=== PATIENT | female | born 1980 | race Caucasian/White ===

== ENCOUNTER 2017-09-30 07:33 | Observation (INO) ==
--- OUTSIDE RECORDS SUMMARY | 2017-09-30 08:03 | External Medical Summary | Clinical Summary ---
:1980 Author Organization [facility] Address [address] [place] [address] Phone Care Team Providers Name Role Phone Unavailable Primary Care Provider Unavailable Source Comments Some departments are not documenting in the electronic medical record. If you do not see the information that you expected, contact Release of Information in the Health Information Management department at [phone] for further assistance in locating additional records.[facility] Allergies Active Allergy Reactions Severity Noted Date Comments Cefazolin High 09/05/2003 Allergy recorded in SMS: ANCEF~Reactions: RASH Cefuroxime Axetil High 09/05/2003 Allergy recorded in SMS: CEFTIN~Reactions: RASH Cephalosporins High 09/05/2003 Allergy recorded in SMS: CEPHALOSPORINS~Reactions : RASH Hydrocodone High 09/05/2003 Allergy recorded in SMS: HYDROCODONE~Reactions: RASH Vancomycin High 09/05/2003 Allergy recorded in SMS: VANCO~Reactions: RASH Benzoin 09/05/2003 Allergy recorded in SMS: BENZOIN~Reactions: RASH Iodinated Contrast- Oral And Iv 09/05/2003 Allergy recorded in SMS: Dye Contrast Dye~Reactions: RASH Social History Tobacco Use Types Packs/Day Years Used Date Never Assessed Sex Assigned at Date Recorded Not on file Plan of Treatment Health Maintenance Due Date Last Done Comments PHYSICAL (COMPREHENSIVE) EXAM 1985 PERTUSSIS VACCINE 1989 TETANUS VACCINE 1995 CERVICAL CANCER SCREENING 2008 INFLUENZA VACCINE 04/27/2017
[2017-09-30 08:24] VITALS: BMI 56.8
[2017-09-30] MEDS ORDERED: NS 1,000 ML IV ONE (08:26)
[2017-09-30] MEDS ORDERED: FentaNYL 100 MCG/2 ML INJECTION IVP ONE (08:28)
[2017-09-30] MEDS: ONDANSETRON 4 MG/2 ML INJECTION IVP SCH ×3 (08:51→22:54)
[2017-09-30] MEDS: PROMETHAZINE 25 MG INJECTION IVP PRN ×2 (09:37→15:36)
--- NOTE | 2017-09-30 10:08 | XRay Report ---
Indication: acute Abd pain PROCEDURE: PA view of the chest with supine and upright AP views of the abdomen Encounter: Initial Comparison: August 29, 2014 FINDINGS: The lungs are hypoinflated but grossly clear. There is no abnormal airspace opacity, pleural effusion or pneumothorax identified. The heart size, pulmonary vasculature and mediastinum are within normal limits. There is no free air on the upright view. The bowel gas pattern is nonobstructive and nonspecific. Gas is seen in small and large bowel to the level of the rectum. Distended colon Moderate stool is seen throughout the colon. IMPRESSION: 1. No acute cardiopulmonary abnormality. 2. No evidence of acute obstruction or free air. Distention of the colon could represent ileus. .
[2017-09-30] MEDS: NS 1,000 ML IV SCH (10:14)
[2017-09-30] MEDS ORDERED: BISACODYL 10 MG SUPPOSITORY RECTALLY ONE (15:20)
[2017-09-30] MEDS ORDERED: SENNA + DOCUSATE TABLET PO ONE (16:35)
[2017-09-30] MEDS: NS with KCL 20 mEq 1,000 ML IV SCH (17:08)
--- NOTE | 2017-09-30 17:55 | Internal Med History&Physical ---
Internal Medicine HPI Chief complaint: Nausea, vomiting, abdominal pain History of present illness: Jen is a 37 yo obese white female with a history of Spina bifida and multiple complications. She presented with 3 day history of nausea, vomiting, abdominal pain. She was recently seen in the ER and released. She is now unable to keep any fluids down due to uncontrollable nausea/vomiting. She also c/o abdominal pain and distension. Review of Systems - Constitutional Constitutional: Present: fatigue, fever(s), lethargy, malaise, weakness - EENMT Balance: Absent: vertigo Mouth/Throat: Absent: sore throat, painful swallowing - Cardiovascular Cardiovascular: Absent: chest pain, palpitations - Gastrointestinal Gastrointestinal: Present: abdominal pain, constipation, nausea, vomiting - Genitourinary Genitourinary: Present: urinary frequency. Absent: flank pain, hematuria, pelvic pain - Neurological Neurological: Present: numbness, weakness - Psychiatric Psychiatric: Present: anxiety, depression - Allergic/Immunologic Allergic/Immunologic: Absent: tongue swelling, throat swelling, itchy eyes, urticaria PFSH Patient Stated Medical History Peripheral Neuropathy Yes Hypotension Yes: sometimes Asthma Yes Bronchitis Yes Pneumonia Yes: HX Gastroesophageal Reflux Yes Disease Hiatal Hernia Yes Other GI Yes: IBS Hx Urinary Tract Infection Yes Other Yes: SELF CATH Anemia Yes Osteoarthritis Yes Other Musculoskeletal No Cellulitis Yes MRSA Yes Sepsis Yes Shingles Yes Depression Yes Polycystic Ovarian Syndrome Yes Post Menopausal No Now No Surgical History: FLAGGER shunt. Cholecystectomy. Back. Shoulder - Social History Smoking status: Never smoker Substance use type: does not use Alcohol intake frequency: does not drink Housing: house Household members: spouse, children service: No Current occupational status: disabled Medications Home Medications Medication Instructions Recorded Confirmed Type Alendronate [Fosamax] 70 mg PO Mo #0 06/06/13 09/30/17 History Calcium Carb, Citrate/Vit D3 1 tab PO DAILY #0 01/29/16 09/29/17 History [Calcium + D3 ER Tablet] Ferrous Sulfate [Iron] 325 mg PO DAILY #0 01/29/16 09/30/17 History Lubiprostone [Amitiza] 24 mcg PO BID #0 01/29/16 09/30/17 History Metformin HCl 500 mg PO BID #0 01/29/16 09/30/17 History Oxybutynin Chloride [Oxybutynin 10 mg PO DAILY #0 01/29/16 09/30/17 History Chloride ER] Venlafaxine HCl [Effexor Xr] 150 mg PO DAILY #0 01/29/16 09/30/17 History Cholecalciferol [Vit. D-3] 1 tab PO DAILY 03/14/17 09/30/17 History Allergies Allergy/AdvReac Type Severity Reaction Status Date / Time vancomycin Allergy Mild HIVES Verified 09/30/17 08:33 cefazolin Allergy Unknown Verified 09/30/17 08:33 cefuroxime Allergy Unknown Verified 09/30/17 08:33 hydrocodone Allergy Unknown Verified 09/30/17 08:33 Iodinated Contrast- Oral and Allergy Unknown HIVES Verified 09/30/17 08:33 IV Dye adhesive tape AdvReac Unknown SKIN GETS Verified 09/30/17 08:33 RED benzoin compound Allergy Unknown BLISTERS Uncoded 09/30/17 08:33 AND HIVES Exam Vital signs: Temperature 99.7 F 09/30/17 15:30 Pulse Rate 118 H 09/30/17 15:30 Respiratory Rate 22 09/30/17 15:30 Blood Pressure 134/76 09/30/17 15:30 Pulse Oximetry 95 09/30/17 15:30 - Constitutional moderate distress, morbidly obese, agitated - Routine HEENT Exam Head: Present: normocephalic, atraumatic Eye: Present: EOMI, PERRL, conjunctivae pink. Absent: conjunctival icterus, scleral injection ENT: Present: mucous membranes dry, oropharynx clear, nares patent Nose: swollen mucosa, clear rhinorrhea Throat: normal inspection - Routine Neck Exam Present: supple. Absent: JVD, carotid bruit, lymphadenopathy, thyromegaly - Routine Chest/Breast/Axilla Exam Chest wall: Absent: tenderness Axillae: Absent: lymphadenopathy - Routine Respiratory Exam Present: CTA bilaterally. Absent: accessory muscle use, dyspnea - Routine Cardiovascular Exam Present: no murmur, tachycardia. Absent: S3, S4 - Routine Abdominal Exam Present: tenderness, distended, surgical scars. Absent: normoactive bowel sounds, rebound - Routine Extremities Exam Absent: cyanosis, clubbing, edema - Routine Skin Exam Present: intact. Absent: cyanosis, erythema, mottling, petechiae, jaundice - Routine Neurological Exam Present: alert, oriented X3, CN II-XII intact - Routine Psychiatric Exam Present: anxious, agitated. Absent: normal affect, cooperative, good judgment Internal Medicine Results - Labs CBC & Chem 7: 09/30/17 08:47 09/30/17 08:47 Labs: Short CBC 09/30/17 Range/Units 08:47 WBC 17.1 H (4.5-11.0) T/MM3 Hgb 14.0 (12-16) GM/DL Hct 43.7 (36-46) % Plt Count 213 (130-400) T/MM3 BMP 09/30/17 08:47 Sodium 141 Potassium 3.3 L Chloride 107 Carbon Dioxide 20 L BUN 9.0 Creatinine 0.5 L Glucose 157 H Calcium 8.0 L Liver Function 09/30/17 Range/Units 08:47 Total Bilirubin 0.80 (0.20-1.30) MG/DL AST 26 (14-36) U/L ALT 52 (9-52) U/L Alkaline Phosphatase 158 H (38-126) U/L Albumin 4.2 (3.5-5.0) G/DL - Imaging and Cardiology Chest x-ray Status: image reviewed by me Abdominal x-ray Status: image reviewed by me Additional comments: consistent with ileus Assessment and Plan - Assessment and Plan (1) Nausea and vomiting Current visit: Yes Status: Acute (2) Ileus Current visit: Yes Status: Acute Patient is refusing suppository. She is insisting that she get two Senokot. I have told her that she may require a NGT. She is tearful, agitated. Childish behavior. (3) Viral respiratory illness Current visit: Yes Status: Acute (4) Abdominal pain Current visit: Yes Status: Acute (5) Spina bifida Current visit: Yes Status: Acute (6) Leukocytosis Current visit: Yes Status: Acute Balbuena virus, UA pending
[2017-10-01] MEDS: NS with KCL 20 mEq 1,000 ML IV SCH ×2 (02:47→15:05)
[2017-10-01] MEDS: ONDANSETRON 4 MG/2 ML INJECTION IVP SCH ×4 (02:47→21:24)
--- NOTE | 2017-10-01 08:49 | XRay Report ---
Indication: ileus PROCEDURE: XR abdomen 2V: Encounter: Initial Comparison: September 30, 2017 Findings: The visualized lung bases are clear. There is no free air on the upright view. There is a dilated loop of small bowel seen in the left abdomen measuring up to 4.7 cm in diameter. Scattered nondifferential air-fluid levels are seen within small and large bowel. Colonic gas is again noted. Surgical clips in the left upper abdomen. Impression: The overall bowel gas pattern is suggestive of ileus. .
[2017-10-01] MEDS ORDERED: CALCIUM CHLORIDE 10% (1000mg/10ml) PFS INJECTION IVP ONE (12:25)
[2017-10-01] MEDS ORDERED: CALCIUM CHLORIDE IVP SCH (12:45)
[2017-10-01] MEDS ORDERED: NS IVP SCH (12:45)
[2017-10-01] MEDS: LEVOFLOXACIN PB 500 MG/100 ML BAG IV SCH (15:04)
[2017-10-01] MEDS ORDERED: SENNA + DOCUSATE TABLET PO ONE (15:37)
[2017-10-01] MEDS: 1/2 NS with KCL 20mEq 1,000 ML IV SCH (17:51)
--- NOTE | 2017-10-01 17:54 | Internal Med Progress Note ---
Internal Medicine Subjective Patient seen and examined. Family at the bedside. Questions answered. Abdominal x-ray still revealing ileus. Jen states that she does feel better today and has walks twice. She did have some flatness and passed a small amount of stool earlier today. Lab demonstrated low calcium level and this was replaced. Her sodium is slightly higher so I've changed her fluids to half-normal saline with 20 mEq KCl. She denies chest pains or shortness of breath. She does admit to fevers and chills. This patient has spina bifida and she does self catheter. I did check a catheter UA and it was consistent with infection so I started her on Levaquin daily Exam Vital Signs: Temperature 98.4 F 10/01/17 15:00 Pulse Rate 96 10/01/17 15:00 Respiratory Rate 18 10/01/17 15:00 Blood Pressure 129/73 10/01/17 15:00 Pulse Oximetry 97 10/01/17 15:00 Height/Weight/BMI: Height 4 ft 7 in Weight 112.6 kg Body Mass Index 56.8 - Constitutional Present: no acute distress, obese, diaphoretic - Routine HEENT Exam Head: Present: normocephalic, atraumatic Eye: Present: EOMI, conjunctivae pink. Absent: conjunctival icterus, scleral injection ENT: Present: mucous membranes moist - Routine Neck Exam Present: supple. Absent: JVD - Routine Chest/Breast/Axilla Exam Chest wall: Absent: tenderness Axillae: Absent: lymphadenopathy - Routine Respiratory Exam Present: CTA bilaterally. Absent: accessory muscle use, respiratory distress, rhonchi, wheezes, crackles - Routine Cardiovascular Exam Present: RRR. Absent: S3, S4 - Routine Abdominal Exam Present: tenderness, distended. Absent: normoactive bowel sounds (diminished but present) - Routine Extremities Exam Absent: cyanosis, clubbing, edema - Routine Skin Exam Present: intact. Absent: cyanosis, mottling, petechiae, urticaria, jaundice - Routine Neurological Exam Present: alert, oriented X3, CN II-XII intact - Routine Psychiatric Exam Present: normal affect, cooperative, good judgment. Absent: depressed, anxious Internal Medicine Results - Labs CBC & Chem 7: 10/01/17 04:21 10/01/17 04:21 Labs: Short CBC 10/01/17 Range/Units 04:21 WBC 7.6 D (4.5-11.0) T/MM3 Hgb 12.7 (12-16) GM/DL Hct 40.7 (36-46) % Plt Count 203 (130-400) T/MM3 BMP 10/01/17 04:21 Sodium 145 H Potassium 3.4 L Chloride 114 H D Carbon Dioxide 20 L BUN 7.0 Creatinine 0.5 L Glucose 81 Calcium 7.0 L D Liver Function 10/01/17 Range/Units 04:21 Total Bilirubin 0.60 (0.20-1.30) MG/DL AST 24 (14-36) U/L ALT 38 (9-52) U/L Alkaline Phosphatase 115 D (38-126) U/L Albumin 3.4 L (3.5-5.0) G/DL Urine 09/30/17 Range/Units 22:58 Urine Color Yellow (YELLOW) Urine Clarity Clear Urine pH 6.0 (5.0-8.0) Ur Specific Black 1.020 (1.015-1.025) Urine Protein Negative (NEGATIVE) Urine Glucose (UA) Negative (NEGATIVE) - Imaging and Cardiology Abdominal x-ray Status: image reviewed by me Progress Note-A&P - Time Spent With Patient Total time spent is greater than 50% in coordination of care (as documented) at patient's floor/unit and/or counseling patient: 25 - 35 minutes (1) Nausea and vomiting Status: Acute Current Visit: Yes (2) Ileus Status: Acute Current Visit: Yes (3) Viral respiratory illness Status: Acute Current Visit: Yes (4) Abdominal pain Status: Acute Current Visit: Yes (5) Spina bifida Status: Acute Current Visit: Yes (6) Leukocytosis Status: Resolved Current Visit: Yes (7) Hypocalcemia Status: Acute Current Visit: Yes Hospital Course Summary Disclaimer: The visit summary below is not to be considered part of the above Progress Note. Hospital Course: Patient appears improved from yesterday. She is still distended but not as much. She continues with ileus although this appears to beginning to resolve. I did start her on Levaquin today for urinary tract infection. She does have coronavirus. My primary concern is ileus.
[2017-10-01] MEDS: LUBIPROSTONE 24 MCG CAPSULE PO SCH (17:55)
[2017-10-02] MEDS: ONDANSETRON 4 MG/2 ML INJECTION IVP SCH ×4 (02:11→20:16)
[2017-10-02] MEDS: 1/2 NS with KCL 20mEq 1,000 ML IV SCH ×3 (03:59→23:49)
[2017-10-02] MEDS: LUBIPROSTONE 24 MCG CAPSULE PO SCH ×2 (08:56→17:52)
[2017-10-02] MEDS: NS 1,000 ML IV SCH (10:57)
[2017-10-02] MEDS: LEVOFLOXACIN PB 500 MG/100 ML BAG IV SCH (12:01)
--- NOTE | 2017-10-02 16:04 | Progress Note ---
- Date 10/02/17 Subjective: Jen is a 37 yo obese white female of Dr. Win with a history of Spina bifida and multiple complications. She presented with 3 day history of nausea, vomiting, abdominal pain. She was recently seen in the ER and released. She is now unable to keep any fluids down due to uncontrollable nausea/vomiting. She also c/o abdominal pain and distension. Abdominal x-ray still revealing ileus. On 10/01/17 she was feeling a bit better. She was ambulating in the halls. She had flatus and a small amount of bowel. This patient has spina bifida and she does self catheter. A catheter UA was checked and it was consistent with infection so she was started her on Levaquin daily Today she continues to feel a bit better. She continues to have some stool every time she does herself catheterization. She is passing gas. The only time she is having released significant abdominal pain is when she tries to sit up and she states her muscles are very sore. There is very minimal pain with palpation of the abdomen. She has not been walking out in the halls like she knows she supposed to today. She is up in the room however. She denies significant shortness of breath but states that she is more short of breath than she is at baseline. She denies any chest discomfort or palpitations. She is tolerating ice chips. She said no nausea today. Objective Vital signs: Temperature 97.1 F 10/02/17 07:00 Pulse Rate 88 10/02/17 07:00 Respiratory Rate 18 10/02/17 07:00 Blood Pressure 144/73 H 10/02/17 07:00 Pulse Oximetry 97 10/02/17 07:00 Height/Weight/BMI: Height 1.4 m Weight 112.7 kg Body Mass Index 56.8 Comments: Gen: alert and oriented. NAD Skin: warm and dry HEENT: NC/AT PERRL, EOMI, Sclera, lids and conjunctiva wnl. MMM. OP clear. Neck: No JVD, Carotids 2+ without bruits Lungs: clear. No rales, rhonchi or wheezes CV: regular. No murmur, rub or gallop Abd: soft. +BS. NT. Pt reports she is still distended. She has abdominal hernia. Multiple surgical scars. MS: No edema. Good strength and ROM Neuro: No focal deficits Results - Labs CBC & Chem 7: 10/02/17 04:27 10/02/17 04:27 Microbiology Results: Microbiology 09/30/17 22:58 Urine, Cath Straight Urine Culture - Preliminary Gram Negative Singh Assessment and Plan - Physician Narrative Narrative: Date: 10/02/17 Time: 1559 1. Nausea and vomiting -Due to Ileus -Currently resolved 2. Ileus -Abd X rays look better today -Will advance to clear liquids and follow 3. Viral respiratory illness -+Coronavirus -Appears stable 4. Abdominal pain -This is better today 5. Spina bifida 6. Leukocytosis -Resolved 7. Hypocalcemia -7.6 today, continue to follow and replace 8. Prophylaxis -SCD, ambulate Hospital Course Summary Disclaimer: The visit summary below is not to be considered part of the above Progress Note. Hospital Course: Patient appears improved from yesterday. She is still distended but not as much. She continues with ileus although this appears to beginning to resolve. I did start her on Levaquin today for urinary tract infection. She does have coronavirus. My primary concern is ileus.
[2017-10-03] MEDS: ONDANSETRON 4 MG/2 ML INJECTION IVP SCH ×4 (01:39→21:22)
[2017-10-03] MEDS ORDERED: CALCIUM GLUCONATE 1,000 MG in NS 50 ML IV ONE ×2 (06:24→13:23)
[2017-10-03] MEDS: LUBIPROSTONE 24 MCG CAPSULE PO SCH ×3 (08:47→21:22)
--- NOTE | 2017-10-03 09:59 | XRay Report ---
Indication: Ileus PROCEDURE: XR abdomen 2V: Encounter: Initial Comparison: October 02, 2017 Findings: Lung bases are grossly clear. No free air. Minimal bowel gas overall with scattered colonic gas present. No abnormally dilated small bowel loops. Cholecystectomy clips. Impression: No definite evidence of obstruction. Minimal overall bowel gas and fluid-filled small bowel loops cannot be excluded. .
--- NOTE | 2017-10-03 10:10 | XRay Report ---
Indication: ileus PROCEDURE: XR abdomen 2V: Encounter: Initial Comparison: October 01, 2017 Findings: Lung bases are clear. No free air. Air-fluid levels have apparently resolved in the interval since the prior study. There is more colonic gas present. Minimal gas filled small bowel currently. Bony structures are unchanged. Impression: Resolving ileus. .
[2017-10-03] MEDS: 1/2 NS with KCL 20mEq 1,000 ML IV SCH ×2 (11:12→22:02)
[2017-10-03] MEDS: LEVOFLOXACIN PB 500 MG/100 ML BAG IV SCH (12:06)
--- NOTE | 2017-10-03 13:31 | Progress Note ---
- Date 10/03/17 Subjective: Jen is a 37 yo obese white female of Dr. Win with a history of Spina bifida and multiple complications. She presented with 3 day history of nausea, vomiting, abdominal pain. She was recently seen in the ER and released. She is now unable to keep any fluids down due to uncontrollable nausea/vomiting. She also c/o abdominal pain and distension. Abdominal x-ray still revealing ileus. On 10/01/17 she was feeling a bit better. She was ambulating in the halls. She had flatus and a small amount of bowel. This patient has spina bifida and she does self catheter. A catheter UA was checked and it was consistent with infection so she was started her on Levaquin daily Today she continues to feel a bit better. She continues to have some stool every time she does herself catheterization. She is passing gas. The only time she is having released significant abdominal pain is when she tries to sit up and she states her muscles are very sore. There is very minimal pain with palpation of the abdomen. She is up in the room however. She denies significant shortness of breath and states she is baseline. She denies any chest discomfort or palpitations. She tolerated clears. She denies nausea. Objective Vital signs: Temperature 97.0 F 10/03/17 07:24 Pulse Rate 61 10/03/17 07:24 Respiratory Rate 18 10/03/17 07:24 Blood Pressure 111/67 10/03/17 07:24 Pulse Oximetry 98 10/03/17 07:24 Height/Weight/BMI: Height 1.4 m Weight 112.8 kg Body Mass Index 56.8 Comments: Gen: alert and oriented. NAD Skin: warm and dry HEENT: NC/AT PERRL, EOMI, Sclera, lids and conjunctiva wnl. MMM. OP clear. Neck: No JVD, Carotids 2+ without bruits Lungs: clear. No rales, rhonchi or wheezes CV: regular. No murmur, rub or gallop Abd: soft. +BS. NT/ND. She has abdominal hernia. Multiple surgical scars. MS: No edema. Good strength and ROM Neuro: No focal deficits Abd xray today shows: No definite evidence of obstruction. Minimal overall bowel gas and fluid-filled small bowel loops cannot be excluded. Results - Labs CBC & Chem 7: 10/02/17 04:27 10/03/17 04:05 Microbiology Results: Microbiology 09/30/17 22:58 Urine, Cath Straight Urine Culture - Final Escherichia coli Assessment and Plan Assessment and Plan: Assessment and Plan: 1. Nausea and vomiting -Due to Ileus -Currently resolved 2. Ileus -Abd X rays show: No definite evidence of obstruction. Minimal overall bowel gas and fluid-filled small bowel loops cannot be excluded. -Will advance to full liquids and follow -Maybe able to advance to reg by evening 3. Viral respiratory illness -+Coronavirus -Appears stable 4. UTI-Pt self catheterizes -E coli -On rocephin -Repeat UA 5. Spina bifida 6. Leukocytosis -Resolved 7. Hypocalcemia -5.8 today, ionized 1.04 -Will re-dose with IV calcium gluconate, Pt reports she does not absorb calcium 8. Hypokalemia -PO replacement today 9. Prophylaxis -SCD, ambulate DVT Prophylaxis: SCD's Resuscitation Status: Full Code - Time spent with patient Time with patient PN: 15 minutes - Physician Narrative Physician: Fatuma Lanier MD Narrative: Date: 10/03/17 Time: 1327 Hospital Course Summary Disclaimer: The visit summary below is not to be considered part of the above Progress Note. Hospital Course: Patient appears improved from yesterday. She is still distended but not as much. She continues with ileus although this appears to beginning to resolve. I did start her on Levaquin today for urinary tract infection. She does have coronavirus. My primary concern is ileus.
[2017-10-03] MEDS ORDERED: OXYBUTYNIN CHLORIDE 10 MG PO SCH (21:00)
[2017-10-04 01:25] VITALS: RESP 16
[2017-10-04] MEDS: ONDANSETRON 4 MG/2 ML INJECTION IVP SCH ×3 (02:43→16:00)
[2017-10-04] MEDS: 1/2 NS with KCL 20mEq 1,000 ML IV SCH (06:01)
[2017-10-04 07:53] VITALS: BP 139/80; PULSE 68; TEMP 97.4; O2SAT 92
[2017-10-04] MEDS: LUBIPROSTONE 24 MCG CAPSULE PO SCH (09:13)
[2017-10-04] MEDS: LEVOFLOXACIN PB 500 MG/100 ML BAG IV SCH (13:48)
--- NOTE | 2017-10-04 16:05 | Discharge Summary ---
Discharge Information Date of admission: 09/30/17 07:57 Anticipated date of discharge: 10/04/17 Attending Physician: Luis Alberto Paul DO Primary care physician: Luis Alberto Paul DO - Discharge Diagnosis (1) Nausea and vomiting Status: Acute (2) Ileus Status: Acute (3) Viral respiratory illness Status: Acute (4) Abdominal pain Status: Acute (5) Spina bifida Status: Acute (6) Leukocytosis Status: Resolved (7) Hypocalcemia Status: Acute - Laboratory Labs: 10/04/17 04:45 10/04/17 04:45 - Microbiology Microbiology 09/30/17 22:58 Urine, Cath Straight Urine Culture - Final Escherichia coli History of Present Illness HPI: Jen is a 37 yo obese white female with a history of Spina bifida and multiple complications. She presented with 3 day history of nausea, vomiting, abdominal pain. She was recently seen in the ER and released. She is now unable to keep any fluids down due to uncontrollable nausea/vomiting. She also c/o abdominal pain and distension. Hospital Course This is a general summary of the patient's hospital course. For more details refer to the complete medical record. Hospital course: Patient appears improved from yesterday. She is still distended but not as much. She continues with ileus although this appears to beginning to resolve. I did start her on Levaquin today for urinary tract infection. She does have coronavirus. My primary concern is ileus. Time spent with patient: 25 - 35 minutes DVT Prophylaxis: SCD's Discharge Plan - Med Rec/Dispo Referrals/Follow Up: Luis Alberto Paul DO [Family Provider] - Prescriptions: Continue Venlafaxine HCl [Effexor Xr] 150 mg PO DAILY #0 Metformin HCl 500 mg PO BID #0 Ferrous Sulfate [Iron] 325 mg PO DAILY #0 Cholecalciferol [Vit. D-3] 1 tab PO DAILY Metoclopramide HCl [Reglan] 10 mg PO QID PRN #30 tab PRN Reason: n/v/cramps Alendronate [Fosamax] 70 mg PO Mo #0 Lubiprostone [Amitiza] 24 mcg PO BID #0 Oxybutynin Chloride [Oxybutynin Chloride ER] 10 mg PO DAILY #0 Calcium Carb, Citrate/Vit D3 [Calcium + D3 ER Tablet] 1 tab PO DAILY #0 - Disposition 01 Discharged Home, Self-Care
== END 2017-10-04 16:50 | disposition home or self-care (01) ==
LOC: MED
PROVIDERS: ADMIT Internal Medicine; ATTEND Internal Medicine